=== PATIENT | male | born 1960 | race Caucasian/White ===

== ENCOUNTER 2025-01-04 15:25 | Emergency (ER) | payer OTHER, SELFPAY ==
[2025-01-04 15:27] VITALS: BP 134/76; PULSE 80; RESP 18; TEMP 36.8; O2SAT 99; BMI 33.0
--- NOTE | 2025-01-04 17:44 | EKG12_ITS ---
Test Reason : Blood Pressure : */* mmHG Vent. Rate : 62 BPM Atrial Rate : 62 BPM P-R Int : 188 ms QRS Dur : 98 ms QT Int : 404 ms P-R-T Axes : 11 -35 22 degrees QTcB Int : 410 ms Normal sinus rhythm Left axis deviation Minimal voltage criteria for LVH, may be normal variant ( R in aVL ) Abnormal ECG Confirmed by NADINE JIMENEZ, KENDALL ([id number]), school photograph editor CESAR BOLES ([id number]) on 01/06/2025 1:02:04 PM Referred By: Confirmed By: KENDALL MCCOY MD
--- NOTE | 2025-01-04 17:45 | EX.ED.DYSGE1 ---
HPI History of Present Illness Chief Complaint: Fatigue Informant: patient Narrative Narrative: 64-year-old male presenting to the emergency room for evaluation. Patient states on Thursday he woke up and had some aching in his neck bilateral shoulders frontal headache. He notes mild cough. He feels generalized fatigue. He has a history of diabetes and hypertension. Patient saw his primary care doctor last week. States symptoms have been persistent. He saw the nurse at his employer's office who gave him some type of sinus medicine which has seemed to help the headache. He notes no urinary symptoms. No fever or sweats. Mild diarrhea. [facility] Medical History (Updated 01/04/25 @ 20:[address] Kevin Wills DO) Hypertension Diabetes mellitus Allergy/AdvReac Type Severity Reaction Status Date / Time No Known Allergies Allergy Verified 01/04/25 15:29 Social History Smoking Status: Never smoker EXAM Physical Exam Const Vital Signs: 01/04/25 15:27 01/04/25 17:56 01/04/25 17:58 Temperature 98.3 F Temperature Source Oral Pulse Rate 80 63 Respiratory Rate 18 16 Respiratory Effort Normal Non-Labored Respiratory Pattern Normal Blood Pressure 134/76 H 144/90 H Blood Pressure Mean 95 108 Pulse Ox 99 99 Oxygen Delivery Method Room Air Room Air 01/04/25 19:16 Temperature Temperature Source Pulse Rate Respiratory Rate Respiratory Effort Respiratory Pattern Blood Pressure 149/82 H Blood Pressure Mean 104 Pulse Ox Oxygen Delivery Method Positive well nourished and well developed General Appearance ED: well developed and NAD HEENT Reports normocephalic, head/scalp atraumatic and moist mucous membranes Eyes PERRL and EOMs intact bilaterally Neck no lymphadenopathy, supple and no JVD Resp normal respiratory effort and clear to auscultation bilaterally Cardio regular rate, regular rhythm and no murmurs GI normal to inspection, nondistended, normoactive bowel sounds and non-tender Palpation: soft Back/Spine no CVA tenderness and normal ROM Extremity normal to inspection General Extremety ED: Negative for edema General Extremity: Negative for edema Neuro oriented x3 and CN's II-XII intact bilaterally Sensorium / Orientation: alert Motor Exam: strength 5/5 throughout Psych mental status grossly normal Mood & Affect: Negative for depressed or tearful Skin no rashes or lesions noted and no wounds MDM MDM MDM Narrative Medical decision making narrative: Differential diagnosis includes viral syndrome UTI cystitis dehydration White blood cell count 6.8 hemoglobin 11.9 platelet count 241. BMP with a creatinine 1.54 BUN of 30. At the last set of labs I have to compare this to is from 2017. His urinalysis is negative for infection. COVID influenza and RSV swabs were negative. Patient received a dose of Toradol. Clinically the patient appears well. I think it is highly likely that the patient may have a viral syndrome given the myalgias and the headache. I do not believe he needs a lumbar puncture. I would recommend supportive care. Follow-up with primary care if not improving return if worsening History & Record Review Discussion w/independent historian: Patient Additional record(s) reviewed:: Prior labs Lab Data Attestation: I reviewed the patient's lab results. Labs: Laboratory Results - last 24 hr 01/04/25 01/04/25 17:53 19:00 WBC 6.8 RBC 3.96 L Hgb 11.9 L Hct 34.9 L MCV 88.1 MCH 30.1 MCHC 34.1 RDW Std Deviation 39.5 RDW Coeff of Soni 12.2 Plt Count 241 MPV 10.6 Immature Gran % (Auto) 0.100 Neut % (Auto) 47.6 Lymph % (Auto) 36.8 [place] % (Auto) 10.3 H Eos % (Auto) 4.0 Baso % (Auto) 1.2 H Absolute Neuts (auto) 3.2 Absolute Lymphs (auto) 2.49 Nucleated RBC % 0 Sodium 131 L Potassium 3.9 Chloride 96 L Carbon Dioxide 23.6 Anion Gap 11 BUN 30 H Creatinine 1.54 H Estim Creat Clear Calc 63.01 Est GFR (MDRD) Non-Af 50 L BUN/Creatinine Ratio 19.6 Glucose 167 H Calcium 9.0 Total Bilirubin 0.53 AST 15 ALT 14 Alkaline Phosphatase 61 Troponin T High Sens 10 Total Protein 6.8 Albumin 4.2 Globulin 2.6 Albumin/Globulin Ratio 1.6 Urine Color Yellow Urine Clarity Clear Urine pH 5.0 Ur Specific Leonore 1.020 Urine Protein 15 H Urine Glucose (UA) Normal Urine Ketones 5 H Urine Occult Blood Negative Urine Nitrite Negative Urine Bilirubin Negative Urine Urobilinogen Normal Ur Leukocyte Esterase Negative Urine RBC 0-5 SEEN Urine WBC 0 SEEN Ur Squamous Epith Cells 0 SEEN Urine Bacteria RARE Urine Mucus 0 SEEN EKG Initial EKG: Attestation: I personally reviewed and interpreted this EKG as follows: Comments: Normal sinus rhythm ventricular rate of 62 bpm. Discharge Plan Triage Chief Complaint: Fatigue ED Provider: Kevin Wills Dx/Rx/DC Orders Clinical Impression: Acute viral syndrome Instructions: ED Viral Syndrome (Adult) Primary Care Provider: Valeriy Han Referrals: Valeriy Han MD [Primary Care Provider] - 3-5 Days if not improving Print Language: Belarusian Disposition Disposition: Home, Self Care
[2025-01-04] MEDS: Ketorolac 30 MG/ML Syringe IV (17:55)
[2025-01-04 17:58] VITALS: BP 144/90; PULSE 63; RESP 16; O2SAT 99
[2025-01-04 18:07] LABS: Absolute Lymphocyte Count 2.49 X10^3/uL (0.83-4.51); Absolute Neutrophil Count 3.2 X10^3/uL (2.0-7.7); Basophil# 0.08 X10^3/uL; Basophil% 1.2 % (0-1); Eosinophil# 0.27 X10^3/uL; Hematocrit 34.9 % (40-54); Hemoglobin 11.9 g/dL (13.0-16.5); Lymphocyte # 2.49 X10^3/ul (0.83-4.51); Lymphocyte % 36.8 % (19-41); Mean Corp Hgb Conc 34.1 g/dL (32-36); Mean Corpuscular Hgb 30.1 pg (27.0-32.0); Mean Corpuscular Volume 88.1 fL (80-94); Mean Platelet Vol. 10.6 fl (6.2-12.0); Monocyte% 10.3 % (0-10); NRBC Flagged by Analyzer 0 % (0-5); Neutrophil # 3.22 X10^3/uL (2.7-7.7); Neutrophil % 47.6 % (47-70); Platelet Count 241 K/mm3 (150-450); RBC Distribution Width CV 12.2 % (11.6-14.6); RBC Distribution Width SD 39.5 fl (35.1-43.9); Red Blood Count 3.96 M/mm3 (4.6-6.2); White Blood Count 6.8 K/mm3 (4.4-11.0)
[2025-01-04 18:23] LABS: ALB/GLOB Ratio 1.6 RATIO (0.9-2.4); AST(SGOT) 15 U/L (<=37); Alanine Aminotransfer ALT/SGPT 14 U/L (<=46); Albumin, Serum 4.2 g/dL (3.4-4.8); Alkaline Phosphatase 61 U/L (40-129); Anion Gap 11 (5-15); BUN 30 mg/dL (4-19); BUN/Creat Ratio 19.6 RATIO (10-20); Carbon Dioxide 23.6 mmol/L (21.0-32.0); Chloride 96 mmol/L (98-108); Creatinine, Serum 1.54 mg/dL (0.70-1.20); EST Glomerular Filtration Rate 50 (>60); Estimated Creatinine Clearance 63.01 ml/min (50-250); Globulin 2.6 g/dL (2.2-4.2); Glucose 167 mg/dL (70-99); Potassium 3.9 mmol/L (3.3-5.1); Protein, Total 6.8 g/dL (5.9-8.4); Sodium Level 131 mmol/L (133-145); Total Bilirubin 0.53 mg/dL (0.00-1.30)
[2025-01-04 18:50] LABS: Troponin T High Sensitivity 10 ng/L (<=22)
[2025-01-04 19:16] VITALS: BP 149/82
[2025-01-04 19:21] LABS: Mucous, Urine 0 SEEN /hpf (<or=2+); Squamous Epithelial Cells - UA 0 SEEN /hpf (0-5); White Blood Cells 0 SEEN /hpf (0-5)
[2025-01-04 19:23] LABS: Color, Urine Yellow (Yellow); Glucose, Dipstick Normal (Normal); Ketone-Dipstick 5 mg/dl (Negative); Leukocyte Esterase-Dipstick Negative /ul (Negative); Nitrite-Dipstick Negative (Negative); Occult Blood-Urine Negative /ul (Negative); Protein-Dipstick 15 mg/dl (Negative); Urine Bilirubin Dipstick Negative (Negative); Urine Clarity Clear (Clear); Urine Urobilinogen Normal (Normal)
[2025-01-04 19:37] LABS: Bacteria RARE /hpf (None Seen); Red Blood Cells-Urine 0-5 SEEN /hpf (0-5)
[2025-01-04 20:18] VITALS: BP 148/60; PULSE 63; RESP 16; TEMP 36.9; O2SAT 100
== END 2025-01-04 20:19 | disposition home or self-care (01) ==
PROVIDERS: Emergency Provider Emergency Medicine; PCP Family Medicine; Visit Provider Emergency Medicine
DX: B34.9 Viral infection, unspecified (principal); E11.9 Type 2 diabetes mellitus without complications; R53.83 Other fatigue; I10 Essential (primary) hypertension
CPT/HCPCS: 80053; 81001; 84484; 85025; 87631; 93005; 96374; 99283; A4216